=== PATIENT | female | born 1990 | race Caucasian/White ===

== ENCOUNTER 2017-05-02 11:00 | Emergency (ER) | payer MEDICAID ==
[~2017-05-02] VITALS: Ht 149.9 cm; Wt 59.0 kg
[2017-05-02 11:03] VITALS: BP 121/63
--- NOTE | 2017-05-02 11:11 | NUR ---
PT TRIAGED, AMBULATED TO ER LOBBY WAITING FOR ER BED. ERMD AWARE OF PATIENT STATUS.
--- NOTE | 2017-05-02 12:42 | NUR ---
PT TRIAGED, WAITING FOR ER BED. ERMD AWARE OF PATIENT STATUS.
--- NOTE | 2017-05-02 14:40 | NUR ---
PT TRIAGED, WAITING FOR ER BED. ERMD AWARE OF PATIENT STATUS.
== END 2017-05-02 15:12 | disposition left against medical advice (07) ==
LOC: MED 11:00
DX: N64.4 Mastodynia (principal); Z53.21 Procedure and treatment not carried out due to patient leaving prior to being seen by health care provider
CPT/HCPCS: 76641; 99281

== ENCOUNTER 2017-06-29 05:40 | Emergency (ER) | payer MEDICAID ==
[~2017-06-29] VITALS: Ht 149.9 cm; Wt 61.2 kg
[2017-06-29 05:57] VITALS: BP 145/84
--- NOTE | 2017-06-29 05:59 | NUR ---
PT. AMBULATED TO ER CHD
--- NOTE | 2017-06-29 06:18 | NUR ---
PT MOVED TO BED 10
--- NOTE | 2017-06-29 06:18 | NUR ---
26 Y/O F W/C/O BELLY BOTTOM PAIN AND SMALL BUMP NOTED X YESTERDAY. PT STATES PAIN NOT PRESENT AT THE MOMENT. DENIES ANY N/V/D. ALF GIBBONS MADE AWARE.
[2017-06-29 07:00] VITALS: BP 106/74
--- NOTE | 2017-06-29 07:00 | NUR ---
Patient discharged with v/s stable. Written and verbal after care instructions given and explained. Patient alert, oriented and verbalized understanding of instructions. Ambulatory with steady gait. All questions addressed prior to discharge. ID band removed. Patient advised to follow up with PMD. Rx of BACTRACIN OITMENT given. Patient educated on indication of medication including possible reaction and side effects. Opportunity to ask questions provided and answered.
== END 2017-06-29 07:00 | disposition home or self-care (01) ==
LOC: MED 05:40
DX: L03.316 Cellulitis of umbilicus (principal)
CPT/HCPCS: 99283